=== PATIENT | male | born 1995 | race African-American/Black ===

== ENCOUNTER 2019-01-24 04:47 | Emergency (ER) | payer OTHER, MEDICAID ==
[~2019-01-24] VITALS: Ht 167.6 cm; Wt 64.0 kg
[2019-01-24 04:54] VITALS: BP 138/82
== END 2019-01-24 06:55 | disposition left against medical advice (07) ==
LOC: ER 05:42
DX: F16.10 Hallucinogen abuse, uncomplicated (principal); G47.00 Insomnia, unspecified; F12.10 Cannabis abuse, uncomplicated; F17.200 Nicotine dependence, unspecified, uncomplicated
CPT/HCPCS: 99281

== ENCOUNTER 2020-07-19 00:29 | Emergency (ER) | payer MEDICAID, OTHER ==
[~2020-07-19] VITALS: Ht 172.7 cm; Wt 48.0 kg
[2020-07-19] MEDS ORDERED: MAGNESIUM CITRATE 300ML SOLUTION PO ONE (01:00)
[2020-07-19 02:15] VITALS: BP 127/75
== END 2020-07-19 02:20 | disposition home or self-care (01) ==
LOC: ER 00:29
DX: K59.00 Constipation, unspecified (principal); Z87.01 Personal history of pneumonia (recurrent); R03.0 Elevated blood-pressure reading, without diagnosis of hypertension
CPT/HCPCS: 71045; 74018; 93005; 99284